=== PATIENT | female | born 1980 | race American Indian/Alaskan Native ===

== ENCOUNTER 2017-01-06 16:27 | Emergency (ER) | payer SELFPAY ==
[2017-01-06 18:05] VITALS: BP 138/67
[2017-01-06 18:20] LABS: Basophils % (Auto) 0.4 % (0.0-1.8); Eosinophils % (Auto) 0.9 % (0.0-4.3); Hemoglobin 10.6 gm/dl (10.1-14.3); Mean Corpuscular HGB Conc 32 % (30-34); Mean Corpuscular Volume 72 fl (79-97); Platelet Count 245 K/mm3 (140-440); Red Blood Count 4.57 M/mm3 (3.65-5.03); Red Cell Distribution Width 17.9 % (13.2-15.2); White Blood Count 10.1 K/mm3 (4.5-11.0)
[2017-01-06 18:33] LABS: Mean Corpuscular Hemoglobin 23 pg (28-32)
[2017-01-06 18:53] LABS: Alanine Aminotransferase 11 units/L (7-56); Alanine Aminotransferase 12 units/L (7-56); Albumin 3.8 g/dL (3.9-5); Albumin/Globulin Ratio 1.3 %; Albumin/Globulin Ratio 1.4 %; Alkaline Phosphatase 49 units/L (35-129); Anion Gap 14 mmol/L; Blood Urea Nitrogen 7 mg/dL (7-17); Carbon Dioxide 26 mmol/L (22-30); Chloride 103.2 mmol/L (98-107); Glucose 94 mg/dL (65-100); Lipase 15 units/L (13-60); Potassium 3.3 mmol/L (3.6-5.0); Sodium 140 mmol/L (137-145); Total Protein 6.5 g/dL (6.3-8.2); Total Protein 7.2 g/dL (6.3-8.2)
[2017-01-06 19:00] LABS: Bilirubin,Direct < 0.2 mg/dL (0-0.2)
--- NOTE | 2017-01-06 19:15 | Ultrasound Report ---
FINAL REPORT EXAM: US ABDOMEN LIMITED HISTORY: right upper quadrant pain r/o Gallstone TECHNIQUE: Real-time sonography was performed of the right upper quadrant and images are submitted for interpretation. PRIORS: None. FINDINGS: The liver has a normal homogeneous echotexture without focal lesions. There are multiple calcified stones in the gallbladder. The gallbladder wall is not thickened and there is no pericholecystic fluid. There is no evidence of biliary dilatation, the common bile duct measures 3 millimeters. The pancreas has a normal echogenicity and appearance. The visualized segments of the abdominal aorta and inferior vena cava appear normal. The right kidney appears normal in size, shape and echogenicity, measuring 12.4 x 4.4 x 6.0 cm. IMPRESSION: Cholelithiasis without sonographic evidence of acute cholecystitis.
[2017-01-06 19:46] LABS: Alkaline Phosphatase 48 units/L (35-129)
[2017-01-06 20:57] LABS: Bacteria,Urine 1+ /HPF (Negative); Bilirubin,Urine NEG (Negative); Blood,Urine NEG (Negative); Ketones,Urine NEG (Negative); Leukocyte Esterase,Urine TR (Negative); Mucus,Urine 2+ /HPF; Nitrite,Urine NEG (Negative); Protein,Urine <15 mg/dL mg/dL (Negative); Urobilinogen,Urine < 2.0 mg/dL (<2.0)
== END 2017-01-06 23:35 | disposition left against medical advice (07) ==
LOC: ED 16:27
DX: R11.2 Nausea with vomiting, unspecified (principal); R10.9 Unspecified abdominal pain; Z53.21 Procedure and treatment not carried out due to patient leaving prior to being seen by health care provider
CPT/HCPCS: 36415; 76705; 80053; 80074; 81001; 83690; 84703; 85025